=== PATIENT | female | born 1995 | race Caucasian/White ===

== ENCOUNTER 2020-11-22 10:23 | Emergency (ER) | payer OTHER ==
--- OUTSIDE RECORDS SUMMARY | 2020-11-22 10:25 | XMS REPORT | Continuity of Care Document ---
:1995 Author Organization [facility] t Address [address] [place] [address] Care Team Providers Name Role Phone Unavailable Unavailable Unavailable Problems This patient has no known problems. Allergies, Adverse Reactions, Alerts Allergy Allergy Status Severity Reaction(s) Onset Inactive Treating Comm ents Source Name Type Date Date Clinician Suprax Adverse Active Rash,hands [facility] Dytan-D Adverse Active Pass out [facility] Reaction [facility] Medications Ordered Filled Start Stop Current Ordering Indication Dosage Frequency Signature Comments Components Source Medication Medication Date Date Medication? Clinician (SIG) Name Name Levothyroxi Levothyroxi Yes Camron [address] [facility] ne Sodium ne Sodium Toth in the Linnea kes - morning on [facility] an empty l stomach [facility] Procedures This patient has no known procedures. Encounters Start End Encounter Admission Attending Care Care Encounter Source Date/Time Date/Time Type Type Clinicians Facility Department ID 2020-08-30 2020-08-30 Outpatient [facility] [id number] [facility] 2020-05-30 2020-05-30 Outpatient [facility] [id number] [facility] 2020-02-29 2020-02-29 Outpatient [facility] [id number] [facility] 2020-02-28 2020-02-28 Outpatient Kiley Vega [id number] 08:40:00 08:40:00 t [employer] [facility] 2020-01-26 2020-01-26 Outpatient Kiley Vega [id number] [facility] 15:30:00 15:30:00 t [employer] [facility] Clin[facility] Results This patient has no known results.
--- NOTE | 2020-11-22 11:25 | ER ---
Nurse's Notes [facility] Name: Aurelia Perez Age: 25 yrs Sex: Female : 1995 Arrival Date: 11/22/2020 Time: 10:24 Bed 16 Private MD: Camron Toth Diagnosis: Acute pharyngitis;Acute serous otitis media Presentation: 11/22 10:35 Chief complaint: Parent and/or Guardian states: having strep symptoms, allergy symptoms iw also , low fever, symptoms started this weekend. Coronavirus screen: Client denies travel out of the [place] in the last 14 days. Client presents with at least one sign or symptom that may indicate coronavirus-19. Ebola Screen: Patient negative for fever greater than or equal to 101.5 degrees Fahrenheit, and additional compatible Ebola Virus Disease symptoms Patient denies exposure to infectious person. Patient denies travel to an Ebola-affected area in the 21 days before illness onset. No symptoms or risks identified at this time. Initial Sepsis Screen: Does the patient meet any 2 criteria? No. Patient's initial sepsis screen is negative. Does the patient have a suspected source of infection? No. Patient's initial sepsis screen is negative. Risk Assessment: Do you want to hurt yourself or someone else? Patient reports no desire to harm self or others. Onset of symptoms was November 19, 2020. 10:35 Method Of Arrival: Ambulatory iw 10:35 Acuity: NELSON 4 iw RN TRIAGE: 10:42 LMP N/A - tw2 Historical: - Allergies: 10:39 ditan; iw - Home Meds: 10:39 levothyroxine 75 mcg oral tab once daily [Active]; iw - PMHx: 10:39 downs syndrome; Hypothyroidism; iw - PSHx: 10:39 None; iw - Immunization history:: Adult Immunizations Client reports having NOT received the Covid vaccine. - Social history:: Smoking status: Patient denies any tobacco usage or history of. Screenin:40 Abuse screen: Denies threats or abuse. Nutritional screening: No deficits noted. tw2 Tuberculosis screening: No symptoms or risk factors identified. Fall Risk None identified. Assessment: 10:41 General: Appears in no apparent distress. Behavior is calm, cooperative, appropriate tw2 for age. Pain: Complains of pain in uvula, left aspect of posterior pharynx and right aspect of posterior pharynx. Neuro: Level of Consciousness is awake, alert, obeys commands, Oriented to person, place, time, situation. Cardiovascular: Capillary refill < 3 seconds Patient's skin is warm and dry. Respiratory: Airway is patent Respiratory effort is even, unlabored, Respiratory pattern is regular, symmetrical, Breath sounds are clear. EENT: Throat is reddened. 11:16 Reassessment: provider at bedside at this time. tw2 11:44 Reassessment: Patient appears in no apparent distress at this time. No changes from tw2 previously documented assessment. Patient and/or family updated on plan of care and expected duration. Pain level reassessed. Patient is alert, oriented x 3, equal unlabored respirations, skin warm/dry/pink. Vital Signs: 10:35 BP 121 / 85; Pulse 96; Resp 18 S; Temp 98.0; Pulse Ox 100% on R/A; Weight 61.23 kg; iw ED Course: 10:24 Patient arrived in ED. am2 10:24 Camron Toth DO is Private Physician. am2 10:26 Adrián Rios PA is PHCP. jmm 10:26 Benjie Salvador MD is Attending Physician. [facility] 10:38 Triage completed. iw 10:40 Mildred Griffin, RN is Primary Nurse. tw2 10:40 Bed in low position. Call light in reach. Pulse ox on. NIBP on. tw2 10:47 Strep Sent. tw2 11:24 Camron Toth DO is Referral Physician. [facility] 11:44 No provider procedures requiring assistance completed. Patient did not have IV access tw2 during this emergency room visit. Administered Medications: No medications were administered Outcome: 11:24 Discharge ordered by MD. [facility] 11:44 Discharged to home ambulatory, with family. tw2 11:44 Condition: stable 11:44 Discharge instructions given to patient, family, Instructed on discharge instructions, follow up and referral plans. medication usage, Demonstrated understanding of instructions, follow-up care, medications, Prescriptions given X 1. 11:44 Patient left the ED. tw2 06 09:41 Prescriptions given X other called to report pt cannot swallow the tablet form of antibiotics, Dr. Salvador notified, called in Augmentin 875 suspension to [facility] Signatures: Adrián Rios PA PA jmm Williams, Irene, RN RN iw Mildred Griffin RN RN tw2 Ml Trinh am2 Corrections: (The following items were deleted from the chart) 11/22 10:39 10:35 Pulse 96bpm; Resp 18bpm; Spontaneous; Pulse Ox 100% RA; Temp 98.0F; iw iw
--- NOTE | 2020-11-22 11:25 | EDPHYS ---
Physician Documentation [facility] Name: Aurelia Perez Age: 25 yrs Sex: Female : 1995 Arrival Date: 11/22/2020 Time: 10:24 Bed 16 Private MD: Navneet [facility] ED Physician Benjie Salvador HPI: 11/22 11:19 This 25 yrs old Female presents to ER via Ambulatory with complaints of jmm Fever, Sore Throat. 11:19 Onset: The symptoms/episode began/occurred gradually. Modifying factors: there are no jmm obvious modifying factors. Associated signs and symptoms: Pertinent positives:. This is a 25 year old female with a history of downs syndrome, that presents to the ED with complaints of sore throat, fever, ear ache beginning approx 2 days ago. Patient is UTD on immunizations. . 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 - Social history:: Smoking status: Patient denies any tobacco usage or history of. ROS: 11:19 Constitutional: Positive for fever. jmm 11:19 ENT: Positive for sore throat. 11:19 All other systems are negative. Exam: 11:19 Constitutional: This is a well developed, well nourished patient who is awake, alert, jmm and in no acute distress. Head/Face: atraumatic. Eyes: EOMI, no conjunctival erythema appreciated 11:19 Neck: Trachea midline, Supple Chest/axilla: Normal chest wall appearance and motion. Cardiovascular: Regular rate and rhythm. No edema appreciated Respiratory: Normal respirations, no respiratory distress appreciated Abdomen/GI: Non distended, soft Back: Normal ROM Skin: General appearance color normal MS/ Extremity: Moves all extremities, no obvious deformities appreciated, no edema noted to the lower extremities Neuro: Awake and alert, normal gait Psych: Behavior is normal, Mood is normal, Patient is cooperative and pleasant 11:19 ENT: Posterior pharynx: erythema, that is moderate. 11:20 ENT: TM's: erythema, that is mild, on the left. [facility] Vital Signs: 10:35 BP 121 / 85; Pulse 96; Resp 18 S; Temp 98.0; Pulse Ox 100% on R/A; Weight 61.23 kg; iw MDM: 11:16 Patient medically screened. [facility] 11:21 Data reviewed: vital signs, nurses notes. Counseling: I had a detailed discussion with [facility] the patient and/or guardian regarding: the historical points, exam findings, and any diagnostic results supporting the discharge/admit diagnosis, lab results, the need for outpatient follow up, to return to the emergency department if symptoms worsen or persist or if there are any questions or concerns that arise at home. ED course: Patient is alert and non toxic in appearance in the ED. No signs of resp distress. Strep negative. Will treat for acute pharyngitis. OM. . 11/22 10:42 Order name: Strep tw2 11/22 10:42 Order name: Group A Streptococcus Rapid Sc; Complete Time: 11:18 EDMS 11/22 11:17 Order name: Throat Culture EDMS Administered Medications: No medications were administered Disposition: 17:36 Co-signature as Attending Physician, Benjie Salvador MD I agree with the assessment and kdr plan of care. Disposition: 11/22/20 11:24 Discharged to Home. Impression: Acute pharyngitis, Acute serous otitis media. - Condition is Stable. - Discharge Instructions: Otitis Media, Adult, Pharyngitis. - Prescriptions for Amoxicillin 875 mg Oral Tablet - take 1 tablet by ORAL route every 12 hours for 10 days; 20 tablet. - Medication Reconciliation Form, Thank You Letter, Antibiotic Education, Prescription Opioid Use, Work release form, Family Work Release form. - Follow up: Camron Toth, DO; When: 2 - 3 days; Reason: Recheck today's complaints, Continuance of care, Re-evaluation by your physician. Signatures: Dispatcher [employer] EDMS Benjie Salvador MD MD kdr Mickail, Joel, PA PA [facility] Priscilla Justin, RN RN Mildred Griffin RN RN tw2 Corrections: (The following items were deleted from the chart) 11:44 11:24 11/22/2020 11:24 Discharged to Home. Impression: Acute pharyngitis; Acute serous tw2 otitis media. Condition is Stable. Forms are Medication Reconciliation Form, Thank You Letter, Antibiotic Education, Prescription Opioid Use. Follow up: Camron Toth; When: 2 - 3 days; Reason: Recheck today's complaints, Continuance of care, Re-evaluation by your physician. yovanny
[2020-11-22 11:58] VITALS: BP 121/85; TEMP 98; O2SAT 100
== END 2020-11-22 11:44 | disposition home or self-care (01) ==
LOC: ER 10:23
DX: H65.02 Acute serous otitis media, left ear (principal); J02.9 Acute pharyngitis, unspecified; E03.9 Hypothyroidism, unspecified; Z88.8 Allergy status to other drugs, medicaments and biological substances
CPT/HCPCS: 87070; 87081; 99283

== ENCOUNTER 2020-12-20 15:00 | Emergency (ER) | payer OTHER ==
--- OUTSIDE RECORDS SUMMARY | 2020-12-20 15:02 | XMS REPORT | Continuity of Care Document ---
:1995 Author Organization [facility] t Address [address] [place] [address] Care Team Providers Name Role Phone Unavailable [...] Date/Time Type Type Clinicians Facility Department ID 2020-12-18 2020-12-18 Outpatient [facility] [id number] [facility] 2020-12-07 2020-12-07 Outpatient [facility] [id number] [facility] 2020-12-06 2020-12-06 Outpatient [facility] [id number] [facility] 2020-08-30 2020-08-30 [facility] [id number] 2020-05-30 2020-05-30 [facility] [id number] [facility] 2020-02-29 2020-02-29 Out[facility] [id number] 2020-02-28 2020-02-28 [facility] [id number] 08[facility] 08:40:00 [employer] [facility] 2020-01-26 2020-01-26 [facility] [id number] 15:30[facility]00 15:30:00 [employer] [facility] Results This patient has no known results.
--- NOTE | 2020-12-20 18:20 | RAD REPORT ---
EXAM DESCRIPTION: CT - Head Brain Wo Cont - 12/20/2020 5:56 pm CLINICAL HISTORY: Dizziness COMPARISON: 2007 TECHNIQUE: Computed axial tomography of the head was obtained. IV contrast was not requested. All CT scans are performed using dose optimization technique as appropriate and may include automated exposure control or mA/KV adjustment according to patient size. FINDINGS: An intracranial bleed is not seen . The ventricles are normal in caliber. No extra-axial fluid collection is noted. Fluid within the sinuses/ mastoids is not seen. IMPRESSION: No acute intracranial abnormality is seen. If patient's symptoms persist MRI of the bra in would be recommended.
[2020-12-20 19:14] LABS: Absolute Lymphocytes (CBC) 1.8 K/uL (0.7-4.9); Basophils % 0.7 % (0-1.3); Hematocrit 40.8 % (36.0-45.0); Lymphocytes % 16.5 % (15.3-44.8); MPV 8.8 fL (7.6-11.3); RBC Red Blood Cell Count 4.32 M/uL (3.86-4.86)
[2020-12-20 19:31] LABS: BUN Blood Urea Nitrogen 15 mg/dL (7-18); Bicarbonate 27 mmol/L (21-32); Glucose Level 100 mg/dL (74-106); Sodium Level 139 mmol/L (136-145)
--- NOTE | 2020-12-20 19:48 | ER ---
Nurse's Notes [facility] Name: Aurelia Perez Age: 25 yrs Sex: Female : 1995 Arrival Date: 12/20/2020 Time: 15:03 Bed 5 Private MD: Camron Toth Diagnosis: Altered mental status, unspecified Presentation: 12/20 15:43 Chief complaint: Parent and/or Guardian states: She been having intermittent dizzy jl7 spells for about 2 weeks, was recently treated for left ear infection, antibiotics done on Friday, also seems to be a little winded and she's tired all the time. Dr. Toth said we should bring her to the ER. Coronavirus screen: Client denies travel out of the [place] in the last 14 days. At this time, the client does not indicate any symptoms associated with coronavirus-19. Ebola Screen: No symptoms or risks identified at this time. Initial Sepsis Screen: Does the patient meet any 2 criteria? No. Patient's initial sepsis screen is negative. Does the patient have a suspected source of infection? No. Patient's initial sepsis screen is negative. Risk Assessment: Do you want to hurt yourself or someone else? Patient reports no desire to harm self or others. Onset of symptoms is unknown. 15:43 Method Of Arrival: Ambulatory [facility] 15:43 Acuity: NELSON 3 jl7 Triage Assessment: 15:46 General: Appears in no apparent distress. uncomfortable, Behavior is cooperative, jl7 anxious. Pain: Denies pain. 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 - Social history:: Smoking status: Patient denies any tobacco usage or history of. Screenin:30 Abuse screen: Denies threats or abuse. Nutritional screening: No deficits noted. vg1 Tuberculosis screening: No symptoms or risk factors identified. Fall Risk No fall in past 12 months (0 pts). No secondary diagnosis (0 pts). No IV (0 pts). Ambulatory Aid- None/Bed Rest/Nurse Assist (0 pts). Gait- Normal/Bed Rest/Wheelchair (0 pts) Mental Status- Oriented to own ability (0 pts). Total Duncan Fall Scale indicates No Risk (0-24 pts). Assessment: 17:15 General: Appears in no apparent distress. comfortable, Behavior is calm, cooperative. vg1 Pain: Denies pain. Neuro: Level of Consciousness is awake, alert, obeys commands, Oriented to person, place, time, situation. Cardiovascular: Patient's skin is warm and dry. Respiratory: Airway is patent Respiratory effort is even, unlabored. GI: Patient currently denies nausea, vomiting. : No signs and/or symptoms were reported regarding the genitourinary system. EENT: Ear canal left ear red. Derm: Skin is intact, is healthy with good turgor. Musculoskeletal: Circulation, motion, and sensation intact. 19:04 Reassessment: Patient appears in no apparent distress at this time. No changes from vg1 previously documented assessment. Patient and/or family updated on plan of care and expected duration. Pain level reassessed. Patient is alert, oriented x 3, equal unlabored respirations, skin warm/dry/pink. 19:10 Reassessment: Patient and/or family updated on plan of care and expected duration. Pain ad5 level reassessed. Pt resting comfortably in stretcher with family at bedside. Awake and alert, resp with ease. Denies needs or c/o at this time. VS remain stable. NAD noted, will continue to monitor. Vital Signs: 15:43 BP 138 / 82; Pulse 89; Resp 21; Temp 98.4; Pulse Ox 100% ; Weight 64.86 kg (R); Height jl7 4 ft. 8 in. (142.24 cm) (R); 17:31 BP 138 / 81; Pulse 90; Resp 16; Pulse Ox 99% on R/A; vg1 19:04 BP 135 / 94; Pulse 95; Resp 16; Pulse Ox 100% ; vg1 19:55 BP 111 / 75; Pulse 82; Resp 18 S; Pulse Ox 99% on R/A; ad5 15:43 Body Mass Index 32.06 (64.86 kg, 142.24 cm) jl7 ED Course: 15:03 Patient arrived in ED. as 15:03 Camron Toth DO is Private Physician. as 15:46 Triage completed. jl7 15:46 Arm band placed on right wrist. jl7 17:09 Benjie Salvador MD is Attending Physician. kdr 17:11 Mikki Langford, RN is Primary Nurse. vg1 17:30 Patient has correct armband on for positive identification. Bed in low position. Call vg1 light in reach. Side rails up X 1. Adult w/ patient. 17:56 CT Head Brain wo Cont In Process Unspecified. EDMS 19:03 Initial lab(s) drawn, by me, sent to lab. Inserted saline lock: 22 gauge in left vg1 antecubital area, using aseptic technique. Blood collected. 19:47 Camron Toth DO is Referral Physician. kdr 19:56 No provider procedures requiring assistance completed. IV discontinued, intact, ad5 bleeding controlled, No redness/swelling at site. Pressure dressing applied. Administered Medications: No medications were administered Outcome: 19:48 Discharge ordered by . kdr 19:56 Discharged to home ambulatory, with family. ad5 19:56 Condition: stable 19:56 Discharge instructions given to family, Instructed on discharge instructions, follow up and referral plans. Demonstrated understanding of instructions, follow-up care. 19:57 Patient left the ED. ad5 Signatures: Dispatcher [employer] EDIA Benjie Salvador MD MD kdr Shell Reid Jahala, RN RN jl7 Mikki Langford, RN RN vg1 Capps Maurilio ad5
--- NOTE | 2020-12-20 19:48 | EDPHYS ---
Physician Documentation [facility] Name: Aurelia Perez Age: 25 yrs Sex: Female : 1995 Arrival Date: 12/20/2020 Time: 15:03 Bed 5 Private MD: Navneet Formerly [facility] ED Physician Benjie Salvador HPI: 12/20 18:47 This 25 yrs old Female presents to ER via Ambulatory with complaints of kdr Dizziness. 18:47 The patient presents with dizziness, feeling off balance, The patient has had kdr occasional episodes/brief periods of AMS where she appears to stare off. There is not a report of LOC, generalized or focal shaking. The patient also does not necessarily appear or is there ea report of a postictal period.. Onset: The symptoms/episode began/occurred gradually, 1.5 month(s) ago. Context: occurred various locations , occurred while the patient was various acitvities. Modifying factors: The symptoms are alleviated by nothing, the symptoms are aggravated by nothing. Associated signs and symptoms: The patient has no apparent associated signs or symptoms. Severity of symptoms: At their worst the symptoms were mild in the emergency department the symptoms have resolved. Patient's baseline: Neuro: orientated to person, place, The patient has a history of Downs and per mom is at baseline mental status at this time. The patient has not experienced similar symptoms in the past. The patient has not recently seen a physician. 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 - Social history:: Smoking status: Patient denies any tobacco usage or history of. ROS: 18:47 Constitutional: Negative for fever, chills, and weight loss, Eyes: Negative for injury, kdr pain, redness, and discharge, ENT: Negative for injury, pain, and discharge - the patient is currently being treated for left OM Neck: Negative for injury, pain, and swelling, Cardiovascular: Negative for chest pain, palpitations, and edema, Respiratory: Negative for shortness of breath, cough, wheezing, and pleuritic chest pain, Abdomen/GI: Negative for abdominal pain, nausea, vomiting, diarrhea, and constipation, Back: Negative for injury and pain, : Negative for injury, bleeding, discharge, and swelling, MS/Extremity: Negative for injury and deformity, Skin: Negative for injury, rash, and discoloration, Psych: Negative for depression, anxiety, suicide ideation, homicidal ideation, and hallucinations, Allergy/Immunology: Negative for hives, rash, and allergies, Endocrine: Negative for neck swelling, polydipsia, polyuria, polyphagia, and marked weight changes, Hematologic/Lymphatic: Negative for swollen nodes, abnormal bleeding, and unusual bruising. 18:47 Neuro: Positive for altered mental status. Exam: 18:47 Constitutional: This is a well developed, well nourished patient who is awake, alert, kdr and in no acute distress. Head/Face: Normocephalic, atraumatic. Eyes: Pupils equal round and reactive to light, extra-ocular motions intact. Lids and lashes normal. Conjunctiva and sclera are non-icteric and not injected. Cornea within normal limits. Periorbital areas with no swelling, redness, or edema. Neck: Trachea midline, no thyromegaly or masses palpated, and no cervical lymphadenopathy. Supple, full range of motion without nuchal rigidity, or vertebral point tenderness. No Meningismus. Chest/axilla: Normal chest wall appearance and motion. Nontender with no deformity. No lesions are appreciated. Cardiovascular: Regular rate and rhythm with a normal S1 and S2. No gallops, murmurs, or rubs. Normal PMI, no JVD. No pulse deficits. Respiratory: Lungs have equal breath sounds bilaterally, clear to auscultation and percussion. No rales, rhonchi or wheezes noted. No increased work of breathing, no retractions or nasal flaring. Abdomen/GI: Soft, non-tender, with normal bowel sounds. No distension or tympany. No guarding or rebound. No evidence of tenderness throughout. Back: No spinal tenderness. No costovertebral tenderness. Full range of motion. Skin: Warm, dry with normal turgor. Normal color with no rashes, no lesions, and no evidence of cellulitis. MS/ Extremity: Pulses equal, no cyanosis. Neurovascular intact. Full, normal range of motion. Neuro: Awake and alert, GCS 15, oriented to person, place, time, and situation. Cranial nerves II-XII grossly intact. Motor strength 5/5 in all extremities. Sensory grossly intact. Cerebellar exam normal. Normal gait. Psych: Awake, alert, with orientation to person, place and time. Behavior, mood, and affect are within normal limits. 18:47 ENT: External ear(s): are unremarkable, Ear canal(s): are normal, TM's: dullness, erythema, that is mild, on the left. Vital Signs: 15:43 BP 138 / 82; Pulse 89; Resp 21; Temp 98.4; Pulse Ox 100% ; Weight 64.86 kg (R); Height jl7 4 ft. 8 in. (142.24 cm) (R); 17:31 BP 138 / 81; Pulse 90; Resp 16; Pulse Ox 99% on R/A; vg1 19:04 BP 135 / 94; Pulse 95; Resp 16; Pulse Ox 100% ; vg1 19:55 BP 111 / 75; Pulse 82; Resp 18 S; Pulse Ox 99% on R/A; ad5 15:43 Body Mass Index 32.06 (64.86 kg, 142.24 cm) jl7 MDM: 18:47 Data reviewed: vital signs, nurses notes, lab test result(s), radiologic studies. kdr Counseling: I had a detailed discussion with the patient and/or guardian regarding: the historical points, exam findings, and any diagnostic results supporting the discharge/admit diagnosis, lab results, radiology results, the need for outpatient follow up. 19:48 Patient medically screened. kdr 12/20 17:34 Order name: CBC with Diff; Complete Time: 19:36 kdr 12/20 17:34 Order name: Chem 7; Complete Time: 19:36 kdr 12/20 17:34 Order name: CT Head Brain wo Cont; Complete Time: 18:46 kdr Administered Medications: No medications were administered Disposition Summary: 12/20/20 19:48 Discharge Ordered Location: Home kdr Problem: new kdr Symptoms: are resolved kdr Condition: Stable kdr Diagnosis - Altered mental status, unspecified kdr Followup: kdr - With: Camron Toth, DO - When: 2 - 3 days - Reason: If symptoms return, Further diagnostic work-up, Recheck today's complaints, Continuance of care, Re-evaluation by your physician Discharge Instructions: - Discharge Summary Sheet kdr - Seizure, Adult, [id number] kdr Forms: - Medication Reconciliation Form kdr - Thank You Letter kdr Signatures: Dispatcher [employer] Benjie Sotomayor MD MD kdr Jefry Mejia RN RN jl7
[2020-12-20 20:17] VITALS: TEMP 98.4
[2020-12-20 20:31] VITALS: BP 111/75; O2SAT 99
== END 2020-12-20 19:57 | disposition home or self-care (01) ==
LOC: ER 15:00
DX: R41.82 Altered mental status, unspecified (principal); E03.9 Hypothyroidism, unspecified; Z88.8 Allergy status to other drugs, medicaments and biological substances
CPT/HCPCS: 36415; 70450; 80048; 85025; 99284